=== PATIENT | female | born 1960 | race Caucasian/White ===

== ENCOUNTER → 2020-10-17 | Outpatient (CLI) | payer BC | END | disposition home or self-care (01) | LOC: RAH 08:36 | PROVIDERS: ATTEND Internal Medicine Gastroenterology | DX: Z12.11 Encounter for screening for malignant neoplasm of colon (principal); K57.30 Diverticulosis of large intestine without perforation or abscess without bleeding | CPT/HCPCS: 74270 ==

== ENCOUNTER 2021-06-01 23:15 | Emergency (ER) | payer BC ==
[~2021-06-01] VITALS: Ht 165.1 cm; Wt 143.3 kg
[2021-06-02 00:01] LABS: BASOPHILS % (AUTO) 0.4 % (0.0-5.0); EOSINOPHILS % (AUTO) 0.9 % (0.0-8.0); HEMATOCRIT 43.4 % (36-48); LYMPHOCYTES % (AUTO) 16.4 % (21.0-51.0); MEAN CORPUSCULAR HEMOGLOBIN 28.2 pg (27.0-33.0); MEAN CORPUSCULAR HGB CONC 32.3 g/dL (32.0-36.0); MEAN CORPUSCULAR VOLUME 87.5 fL (79-99); MONOCYTES % (AUTO) 7.3 % (3.0-13.0); NEUTROPHILS % (AUTO) 74.6 % (40.0-77.0); PLATELET COUNT (AUTO) 298 K/uL (130-400); RED BLOOD CELL COUNT(AUTO) 4.96 MIL/uL (4.00-5.50); RED CELL DISTRIBUTION WIDTH 13.9 % (11.0-15.5); WHITE BLOOD COUNT (AUTO) 11.4 K/uL (4.8-10.8)
[2021-06-02 00:14] LABS: CREATININE 0.7 mg/dL (0.5-1.5); POTASSIUM 3.8 mmol/L (3.5-5.1)
[2021-06-02 00:19] LABS: ALBUMIN 3.7 g/dL (3.5-5.0); BILIRUBIN,TOTAL 0.6 mg/dL (0.2-1.0); TOTAL PROTEIN, SERUM 6.9 g/dL (6.0-8.3)
[2021-06-02] MEDS ORDERED: ONDANSETRON 4MG INJ IVP ONE (00:30)
[2021-06-02] MEDS ORDERED: FAMOTIDINE 20MG VIAL IV ONE (00:30)
[2021-06-02] MEDS ORDERED: METOCLOPRAMIDE 10 MG/2 ML VIAL IVP ONE (00:30)
[2021-06-02] MEDS ORDERED: PANTOPRAZOLE 40 MG/VIAL IVP ONE (00:30)
[2021-06-02] MEDS ORDERED: 0.9%NACL 1000ML 1,000 ML IV ONE (00:30)
[2021-06-02] MEDS ORDERED: IOHEXOL-350 75 ML VIAL IV ONE (00:56)
[2021-06-02 00:58] LABS: APPEARANCE,URINE CLEAR (CLEAR); BILIRUBIN,URINE NEGATIVE (NEGATIVE); COLOR,URINE YELLOW (YELLOW); GLUCOSE, URINE (UA) NEGATIVE (NEGATIVE); KETONES,URINE NEGATIVE (NEGATIVE); LEUKOCYTE ESTERASE ,URINE NEGATIVE (NEGATIVE); NITRATE,URINE NEGATIVE (NEGATIVE); OCCULT BLOOD,URINE TRACE-INTACT (NEGATIVE); PROTEIN,URINE NEGATIVE (NEGATIVE); UROBILINOGEN,URINE 0.2 mg/dL (0.2-1.0)
[2021-06-02 01:21] LABS: RBC,URINE 0-1 /HPF (0-1)
[2021-06-02 01:22] LABS: BACTERIA,URINE Few /HPF (None Seen); CALCIUM OXALATE CRYSTALS,UR Few /LPF (None Seen); SQUAMOUS EPITHELIAL CELL,UR Moderate /HPF (0-2)
[2021-06-02 03:25] VITALS: BP 137/75
[2021-06-02] MEDS ORDERED: METO-296 PO (03:25)
[2021-06-02] MEDS ORDERED: ONDA4TAB10 PO (03:25)
[2021-06-02] MEDS ORDERED: CEPH500B PO (03:25)
[2021-06-02] MEDS ORDERED: PANT40TA PO (03:25)
[2021-06-02] MEDS ORDERED: CEPHALEXIN 500 MG CAPSULE PO ONE (03:30)
== END 2021-06-02 03:38 | disposition home or self-care (01) ==
LOC: EDH 23:15
DX: E86.9 Volume depletion, unspecified (principal); R82.71 Bacteriuria; R19.09 Other intra-abdominal and pelvic swelling, mass and lump; E78.5 Hyperlipidemia, unspecified; I10 Essential (primary) hypertension; Z20.822 Contact with and (suspected) exposure to COVID-19; Z88.8 Allergy status to other drugs, medicaments and biological substances
CPT/HCPCS: 36415; 71045; 74177; 80053; 81001; 83605; 83690; 84484; 85025; 87088; 87635; 93005 ×2; 96361; 96374; 96375; 99284; C9113; C9803; J2405; J2765; J3490; Q9967

== ENCOUNTER → 2021-07-26 | Outpatient (CLI) | payer BC ==
[~2021-07-26] MED LIST: CEPH500B PO; LIDOCAINE HCL-MPF 1% 2ML VIAL ONE; METO-296 PO; ONDA4TAB10 PO; PANT40TA PO
[2021-07-26 14:51] LABS: BF EOSINOPHIL 1 %; BF LYMPHOCYTE 18 %; BF MESOTHELIAL 54 %; BF MONOCYTE 1 %
[2021-07-26 14:52] LABS: APPEARANCE BODY FLUID TURBID (CLEAR); COLOR,BODY FLUID BROWN (LT YELLOW); SPECIMENTYPE,BODY FLUID ABDOMINAL; TOTAL VOLUME,BODY FLUID 3500 mL
[2021-07-26 14:53] LABS: BODY FLUID RBC 837500 /cu. mm.; BODY FLUID WBC 26800 /cu. mm.
== END | disposition home or self-care (01) ==
LOC: RAH 07:51
PROVIDERS: ATTEND Physician Assistant
DX: R93.3 Abnormal findings on diagnostic imaging of other parts of digestive tract (principal); I10 Essential (primary) hypertension; E66.9 Obesity, unspecified; F41.9 Anxiety disorder, unspecified; E11.9 Type 2 diabetes mellitus without complications; K21.9 Gastro-esophageal reflux disease without esophagitis; Z79.84 Long term (current) use of oral hypoglycemic drugs; Z79.899 Other long term (current) drug therapy; Z98.890 Other specified postprocedural states; Z90.49 Acquired absence of other specified parts of digestive tract; Z90.710 Acquired absence of both cervix and uterus; Z68.41 Body mass index [BMI] 40.0-44.9, adult
CPT/HCPCS: 10030; 75989; 87071; 87205; 89051; C1729; J3490; 76942

== ENCOUNTER → 2022-08-29 | Outpatient (CLI) | payer OTHER ==
[~2022-08-29] VITALS: Ht 12.7 cm; Wt 151.5 kg
[~2022-08-29] MED LIST changes: -LIDOCAINE HCL-MPF 1% 2ML VIAL ONE
== END | disposition home or self-care (01) ==
LOC: DTH 11:18
PROVIDERS: ATTEND Surgery
DX: Z71.3 Dietary counseling and surveillance (principal); E66.01 Morbid (severe) obesity due to excess calories; E11.9 Type 2 diabetes mellitus without complications; I10 Essential (primary) hypertension; M19.91 Primary osteoarthritis, unspecified site; E78.00 Pure hypercholesterolemia, unspecified; K21.9 Gastro-esophageal reflux disease without esophagitis; G47.33 Obstructive sleep apnea (adult) (pediatric); Z68.43 Body mass index [BMI] 50.0-59.9, adult
CPT/HCPCS: 97802

== ENCOUNTER → 2022-10-15 | Outpatient (CLI) | payer OTHER | END | disposition home or self-care (01) | LOC: DTH 07:58 | PROVIDERS: ATTEND Surgery | DX: Z71.3 Dietary counseling and surveillance (principal); E66.01 Morbid (severe) obesity due to excess calories; E11.9 Type 2 diabetes mellitus without complications; I10 Essential (primary) hypertension; M19.91 Primary osteoarthritis, unspecified site; K21.9 Gastro-esophageal reflux disease without esophagitis; E78.00 Pure hypercholesterolemia, unspecified; G47.33 Obstructive sleep apnea (adult) (pediatric); Z68.43 Body mass index [BMI] 50.0-59.9, adult | CPT/HCPCS: 97803 ==

== ENCOUNTER → 2022-10-29 | Outpatient (CLI) | payer OTHER | END | disposition home or self-care (01) | LOC: DTH 07:56 | PROVIDERS: ATTEND Surgery | DX: Z71.3 Dietary counseling and surveillance (principal); E66.01 Morbid (severe) obesity due to excess calories; E11.9 Type 2 diabetes mellitus without complications; I10 Essential (primary) hypertension; M19.91 Primary osteoarthritis, unspecified site; E78.00 Pure hypercholesterolemia, unspecified; K21.9 Gastro-esophageal reflux disease without esophagitis; G47.33 Obstructive sleep apnea (adult) (pediatric); Z68.43 Body mass index [BMI] 50.0-59.9, adult | CPT/HCPCS: 97803 ==